=== PATIENT | female | born 1970 ===

== ENCOUNTER 2017-03-07 23:40 | Emergency (ER) | payer OTHER ==
[2017-03-07 23:40] VITALS: BMI 32.9
[2017-03-08 00:33] VITALS: RESP 20
[2017-03-08] MEDS ORDERED: Albuterol-Ipratrop 3 mg / 0.5 (3 ml) UD INH STA ×3 (00:54→02:05)
[2017-03-08] MEDS ORDERED: Albuterol-Ipratrop 3 mg / 0.5 (3 ml) UD ONE ×3 (00:57→02:10)
--- NOTE | 2017-03-08 02:33 | C.PDOC ---
History Of Present Illness Patient is a 46 y/o female who presents to the ED with complaint of cough for 1 week and SOB beginning today, prompting visit. Patient admits to using cough medications and Amoxicillin started today ([facility]). Denies fever, chest pain. Time Seen by Provider: 03/08/17 00:39 Chief Complaint (Nursing): Cough, Cold, Congestion History Per: Patient History/Exam Limitations: no limitations Onset/Duration Of Symptoms: Days (1 week of cough, SOB began today) Current Symptoms Are (Timing): Still Present Recent travel outside of the [place]: No Additional History Per: Patient Past Medical History Reviewed: Historical Data, Nursing Documentation, Vital Signs Vital Signs: Last Vital Signs Temp 98 F 03/08/17 02:51 Pulse 87 03/08/17 02:51 Resp 20 03/08/17 02:51 BP 139/79 03/08/17 02:51 Pulse Ox 96 03/08/17 02:51 - Medical History PMH: No Chronic Diseases Surgical History: - [facility] Procedures LOW CERVICAL (12/04/13) Family History: States: Unknown Family Hx - Social History Hx Alcohol Use: No Hx Substance Use: No - Immunization History Hx Tetanus Toxoid Vaccination: No Hx Influenza Vaccination: No Hx Pneumococcal Vaccination: No Review Of Systems Constitutional: Negative for: Fever Respiratory: Positive for: Cough, Shortness of Breath Physical Exam - Physical Exam Appears: Well, Non-toxic, No Acute Distress Skin: Normal Color, Warm, Dry Head: Atraumatic, Normacephalic Eye(s): bilateral: Normal Inspection, EOMI Nose: Normal Oral Mucosa: Moist Neck: Normal ROM, Supple Chest: Symmetrical Cardiovascular: Rhythm Regular, No Murmur Respiratory: No Rales, No Rhonchi, Wheezing Neurological/Psych: Oriented x3, Normal Speech, Normal Cognition ED Course And Treatment O2 Sat by Pulse Oximetry: 95 - Radiology CXR: Interpreted by Me, Viewed By Me CXR Interpretation: Yes: No Acute Disease Progress Note: Plan: CXR ordered. Duoneb, Prednisone, and nebulizer treatment administered. On re-evlaution, patient notes she feels much better. Wheezing persist minimally. Pt was offered admission, though refuses. Denies chest pain, or retractions. Oxygen saturation remains WNL. Patient is alert and oriented x 3. Patient was advised to follow up with physician in 1-2 days. Patient is to be discharged. Disposition - Disposition Disposition: HOME/ ROUTINE Disposition Time: 03:00 Condition: STABLE Additional Instructions: Vaya a castanon mdico o la clnica en 1-3 titus sin falta, para mas evaluacin. Offerman los medicamentos jose indicado. Volver a la felicia de emergencia en cualquier momento si los sntomas persisten o empeoran. Prescriptions: Albuterol 0.083% [Albuterol 0.083% Inhal Chelita (2.5 mg/3 ml) UD] 2.5 mg IH Q6 PRN #30 neb PRN Reason: Shortness Of Breath predniSONE [Prednisone] 40 mg PO DAILY #8 tab Instructions: Acute Bronchitis (ED) Forms: [employer] (Faroese) Print Language: KOREAN - Clinical Impression Clinical Impression: Bronchitis - Scribe Statement The provider has reviewed the documentation as recorded by the Scribe Yuliana Vicente All medical record entries made by the Scribe were at my direction and personally dictated by me. I have reviewed the chart and agree that the record accurately reflects my personal performance of the history, physical exam, medical decision making, and the department course for this patient. I have also personally directed, reviewed, and agree with the discharge instructions and disposition.
[2017-03-08 02:52] VITALS: BP 139/79; PULSE 87; TEMP 98
[2017-03-08 03:59] VITALS: O2SAT 95
--- NOTE | 2017-03-08 09:38 | RAD ---
HISTORY: Shortness of breath COMPARISON: No prior. TECHNIQUE: Chest PA and lateral FINDINGS: LUNGS: No active pulmonary disease. Bibasilar breast and nipple shadows. PLEURA: No significant pleural effusion identified. No pneumothorax apparent. CARDIOVASCULAR: Normal. OSSEOUS STRUCTURES: No significant abnormalities. VISUALIZED UPPER ABDOMEN: Normal. OTHER FINDINGS: None. IMPRESSION: No active disease.
== END 2017-03-08 02:51 | disposition home or self-care (01) ==
LOC: C.ER 23:40
DX: J40 Bronchitis, not specified as acute or chronic (principal)

== ENCOUNTER 2018-08-13 10:18 | Outpatient (CLI) | payer OTHER, SELFPAY | END 2018-08-13 10:19 | disposition home or self-care (01) | LOC: C.USIC 10:18 | DX: R10.2 Pelvic and perineal pain (principal) ==

== ENCOUNTER 2018-08-17 08:17 | Outpatient (CLI) | payer OTHER | END 2018-08-17 08:18 | disposition home or self-care (01) | LOC: C.LAB 08:17 | DX: N92.1 Excessive and frequent menstruation with irregular cycle (principal) ==

== ENCOUNTER 2018-08-29 07:53 | Outpatient (CLI) | payer OTHER | END 2018-08-29 07:54 | disposition home or self-care (01) | LOC: C.PAT 07:53 | DX: N85.00 Endometrial hyperplasia, unspecified (principal) ==

== ENCOUNTER 2018-09-04 09:45 | Day surgery (SDC) | payer OTHER ==
[2018-09-04] MEDS ORDERED: HYDROmorphone 0.5 mg/0.5 ml ISec IVP PRN ×2 (10:22→14:07)
[2018-09-04 10:52] VITALS: BMI 29.4
[2018-09-04 10:57] VITALS: RESP 18
[2018-09-04] MEDS ORDERED: Midazolam 2 MG/2 ML VIAL ONE (13:07)
[2018-09-04] MEDS ORDERED: Propofol 10 mg/ml Inj (20 ML) ONE (13:08)
[2018-09-04] MEDS ORDERED: ePHEDrine 50 mg/ml Inj ONE (13:43)
--- NOTE | 2018-09-04 13:56 | PCM.SURG1 ---
Surgeon's Initial Post Op Note - Surgeon's Notes Surgeon: Dr. Rice Sales Service Technician: None Type of Anesthesia: General LMA Anesthesia Administered By: Dr. Win Pre-Operative Diagnosis: 47 yo with Thickened endometrium , Postmenopausal bleeding , Endometrial polyp Operative Findings: Av uterus with endometerial polyp Post-Operative Diagnosis: Same as above Operation Performed: Hysteroscopy Myosure D and C Specimen/Specimens Removed: EMC, ECC, POLYP Estimated Blood Loss: EBL {In ML}: 10 Blood Products Given: N/A Drains Used: No Drains Post-Op Condition: Good Date of Surgery/Procedure: 09/04/18 Time of Surgery/Procedure: 13:55
[2018-09-04 15:25] VITALS: TEMP 97.8
[2018-09-04 17:19] VITALS: BP 116/65; PULSE 69; O2SAT 99
--- NOTE | 2018-09-05 01:18 | OP ---
PROCEDURE DATE: 09/04/2018 PREOPERATIVE DIAGNOSES: This is a 47-year-old female with postmenopausal bleeding, thickened endometrium, and endometrial polyp. POSTOPERATIVE DIAGNOSES: This is a 47-year-old female with postmenopausal bleeding, thickened endometrium and endometrial polyp. PROCEDURE: Hysteroscopy, MyoSure, D and C. SURGEON: Kinjal Rice MD ANESTHESIOLOGIST: Dr. Hennessy. TYPE OF ANESTHESIA: General LMA. FINDINGS: Anteverted uterus with approximately 8 weeks, noted to have endometrial polyp. COMPLICATIONS: None. ESTIMATED BLOOD LOSS: 10 mL. IV FLUIDS: 500 mL. IN's AND OUT's: 100 mL. SPECIMEN: EMC, ECC, and polyp. DESCRIPTION OF PROCEDURE: The patient was informed of the risk factors, benefits, and alternatives of the procedure. Risks factors included infection, bleeding, damage to the surrounding organs and tissues, complication from anesthesia and possible . After informed consent was obtained, she was then taken to the operating room, prepped and draped in normal sterile fashion and placed in a dorsal lithotomy position. A weighted speculum was inserted into the vagina. The anterior lip of the cervix was grasped with a single-tooth tenaculum. The uterus was gently dilated to approximately 8 cm. Upon complete uterine dilation, the scope was then placed. A complete surveillance of the uterine cavity was then performed and was identified with endometrial polyp. The MyoSure LITE device was then activated under direct visualization, the endometrial polyp was removed and submitted to pathology. Upon completion, a complete surveillance of the hysteroscopy was then performed. The scope was then removed and a fractional D and C was performed. EMC and ECC was submitted to pathology. The scope was re-introduced, making sure there was no area of perforation. Upon completion, all instruments were removed from the vagina. Instrument and lap counts were correct x2. The patient was then taken to the recovery room in stable condition and instructed to follow up in the office in approximately a week. Kinjal Rice MD
== END 2018-09-04 16:50 | disposition home or self-care (01) ==
LOC: C.SDS 09:45
PROVIDERS: ATTEND Obstetrics & Gynecology
DX: N84.0 Polyp of corpus uteri (principal); N85.00 Endometrial hyperplasia, unspecified; N95.0 Postmenopausal bleeding
CPT/HCPCS: 58558; 88305; J2250; J2704; J3010